=== PATIENT | female | born 1985 | race Caucasian/White ===

== ENCOUNTER 2016-06-07 23:11 | Emergency (ER) | payer MEDICAID ==
[~2016-06-07] VITALS: Ht 149.9 cm; Wt 53.0 kg
[2016-06-07] MEDS ORDERED: IPRATROPIUM BROMIDE (0.02%) 0.5MG/2.5ML NEB HHN STA (23:49)
[2016-06-07] MEDS ORDERED: PREDNISONE 20MG TABLET PO STA (23:49)
[2016-06-08] MEDS: ALBUTEROL (0.083%) 2.5MG/3ML NEB HHN SCH
[2016-06-08 01:05] VITALS: BP 121/78
== END 2016-06-08 01:07 | disposition home or self-care (01) ==
LOC: ER 23:12
DX: J45.901 Unspecified asthma with (acute) exacerbation (principal); F17.210 Nicotine dependence, cigarettes, uncomplicated
CPT/HCPCS: 94640; 99284; J7512; J7611; Z7610